=== PATIENT | male | born 1970 | race American Indian/Alaskan Native ===

== ENCOUNTER 2020-11-23 09:37 | Emergency (ER) | payer BC, OTHER ==
[2020-11-23 09:41] VITALS: BP 114/71
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
== END 2020-11-23 10:22 | disposition home or self-care (01) ==
LOC: ED 09:37
DX: M54.2 Cervicalgia (principal); M54.5 Low back pain; R51.9 Headache, unspecified; I10 Essential (primary) hypertension; Z79.899 Other long term (current) drug therapy; V87.7XXA Person injured in collision between other specified motor vehicles (traffic), initial encounter; Y92.410 Unspecified street and highway as the place of occurrence of the external cause; Y93.89 Activity, other specified; Y99.8 Other external cause status
CPT/HCPCS: 99281